=== PATIENT | female | born 1985 | race Caucasian/White ===

== ENCOUNTER 2017-10-01 07:12 | Emergency (ER) | payer BC ==
[2017-10-01] MEDS: NICARDipine HCL 30 MG CAPSULE PO (08:22)
[2017-10-01] MEDS: LORAZEPAM 2 MG INJ IV (08:24)
[2017-10-01 09:01] LABS: ANION GAP 14 (8-16); BLOOD UREA NITROGEN 9 mg/dl (7-20); CALCIUM 9.5 mg/dl (8.4-10.2); CARBON DIOXIDE 27 mmol/L (21-31); CHLORIDE 103 mmol/L (97-110); CREATININE 0.58 mg/dl (0.44-1.00); GLUCOSE 122 mg/dl (70-220); POTASSIUM 4.2 mmol/L (3.5-5.1); SODIUM 140 mmol/L (135-144)
[2017-10-01] MEDS: LABETALOL HCL 20MG INJ IV (09:16)
== END 2017-10-01 10:30 | disposition home or self-care (01) ==
LOC: E/R 07:12
DX: I10 Essential (primary) hypertension (principal)
CPT/HCPCS: 36415; 80048; 96374; 99284-25